=== PATIENT | female | born 2000 | race Two or more races ===

== ENCOUNTER 2023-04-27 02:05 | Emergency (ER) | payer OTHER ==
[~2023-04-27] VITALS: Ht 160 cm; Wt 100.1 kg
[2023-04-27 02:53] LABS: Basophils # (auto) 0.1 10 ^3/uL (0-0.2); Basophils % (auto) 0.4 % (0.0-2.0); Eosinophils # (auto) 0 10 ^3/uL (0-0.8); Hematocrit 42.7 % (36.0-46.0); Lymphocytes # (auto) 1.6 10 ^3/uL (0.4-5.4); Lymphocytes % (auto) 10.2 % (10.0-50.0); Mean Corpuscular Hemoglobin 28.2 pg (28.0-32.0); Mean Corpuscular Hgb Conc. 32.9 g/dL (32.0-36.0); Mean Corpuscular Volume 85.8 fL (80.0-100.0); Monocytes # (auto) 0.4 10 ^3/uL (0-1.3); Monocytes % (auto) 2.5 % (0.0-12.0); Neutrophils # (auto) 13.7 10 ^3/uL (1.6-8.6); Neutrophils % (auto) 86.9 % (37.0-80.0); Red Blood Cells 4.98 10^6/uL (4.0-5.20); Red Cell Distribution Width 15.4 % (11.8-14.3); White Blood Cell 15.8 10^3/uL (4.4-10.8)
[2023-04-27 03:00] LABS: Chloride 104 mmol/L (98-107); Potassium 3.9 mmol/L (3.5-5.1); Sodium 137 mmol/L (136-145)
[2023-04-27 03:01] LABS: Anion Gap 14 (5-15); Carbon Dioxide 19 mmol/L (20-30)
[2023-04-27 03:02] LABS: Calcium 9.3 mg/dL (8.7-10.4)
[2023-04-27 03:06] LABS: Glucose 180 mg/dL (74-106)
[2023-04-27 03:07] LABS: BUN/Creatinine Ratio 16.5 (10.0-20.0); Blood Urea Nitrogen 14 mg/dL (9-23); Lipase 51 U/L (12-53)
[2023-04-27] MEDS ORDERED: SODIUM CHLORIDE 0.9% 1,000 ML IV ONE (04:00)
[2023-04-27] MEDS ORDERED: ONDANSETRON HCL 4 MG/2 ML VIAL IV ONE (04:00)
[2023-04-27] MEDS ORDERED: ZOFR4T PO (04:30)
[2023-04-27 05:52] VITALS: BP 129/92; PULSE 84; RESP 19; TEMP 97.9; O2SAT 100
[2023-04-27] MEDS ORDERED: ONDANSETRON HCL 4 MG/2 ML VIAL IM ONE (06:00)
== END 2023-04-27 06:07 | disposition home or self-care (01) ==
LOC: ER 02:05
DX: R11.2 Nausea with vomiting, unspecified (principal); R10.2 Pelvic and perineal pain; T50.905A Adverse effect of unspecified drugs, medicaments and biological substances, initial encounter; R10.84 Generalized abdominal pain
CPT/HCPCS: 36415; 74176; 80048; 83690; 84702; 85025; 96361; 96372; 96374; 99285; J2405; J7030